=== PATIENT | male | born 1990 | race Two or more races ===

== ENCOUNTER 2020-05-05 10:22 | Emergency (ER) | payer MEDICAID ==
--- NOTE | 2020-05-05 10:56 | EDM.PDOC ---
ED HPI GENERAL MEDICAL PROBLEM - General Chief Complaint: Upper Extremity Injury/Pain Stated Complaint: BROKE HAND Time Seen by Provider: 05/05/20 10:50 Source of Information: Reports: Patient History Limitations: Reports: No Limitations - History of Present Illness INITIAL COMMENTS - FREE TEXT/NARRATIVE: 30-year-old male who reports that he punched a window at approximately midnight last night. He did break the window and has multiple small cuts to the dorsum of his right hand or there is also swelling in this area. He reports the pain as a 9/10 now and it goes up to a 10/10 when he moves it. It is a sharp pain with throbbing component. The pain does not radiate. There were no other injuries. There are no other associated signs or symptoms. There are no other modifying factors. Onset: Other (Around midnight last night) Duration: Constant Location: Reports: Upper Extremity, Right Quality: Reports: Sharp, Throbbing Severity: Severe Improves with: Reports: Immobilization, Rest Worsens with: Reports: Movement Context: Reports: Trauma (Punched a window as above.) Associated Symptoms: Reports: No Other Symptoms Treatments EXPERIMENTAL PHYSICIST: Reports: Other (see below) (Nothing.) Right Hand Pain Score (Numeric/FACES): 8 - Related Data Allergies Allergy/AdvReac Type Severity Reaction Status Date / Time No Known Allergies Allergy Verified 05/05/20 10:48 Past Medical History Neurological History: Reports: Brain Injury Psychiatric History: Reports: Anxiety, Depression - Past Surgical History HEENT Surgical History: Reports: Other (See Below) (Facial surgery status post trauma.) Social & Family History - Tobacco Use Tobacco Use Status *Q: Current Every Day Tobacco User - Alcohol Use Alcohol Use History: Yes - Living Situation & Occupation Living situation: Reports: Single Occupation: Unemployed Review of Systems - Review of Systems Review Of Systems: See Below (Last tetanus immunization was less than 5 years ago according to the patient.) Constitutional: Reports: No Symptoms Eyes: Reports: No Symptoms Ears: Reports: No Symptoms Nose: Reports: No Symptoms Mouth/Throat: Reports: No Symptoms Respiratory: Reports: No Symptoms Cardiovascular: Reports: No Symptoms GI/Abdominal: Reports: No Symptoms Genitourinary: Reports: No Symptoms Musculoskeletal: Reports: Hand Pain (Right hand pain), Other ([id number].) Skin: Reports: Wound (Multiple cuts to the dorsum of his right hand.), Other (Swelling) Neurological: Reports: No Symptoms Psychiatric: Reports: No Symptoms ED EXAM, GENERAL - Physical Exam Exam: See Below Exam Limited By: No Limitations General Appearance: Alert, WD/WN, Moderate Distress (Appears in some pain.) Eye Exam: Bilateral Eye: EOMI, Normal Inspection Ears: Normal External Exam, Hearing Grossly Normal Ear Exam: Bilateral Ear: Auricle Normal Nose: Normal Inspection, Normal Mucosa, No Blood Throat/Mouth: Normal Inspection, Normal Oropharynx, Normal Voice, No Airway Compromise Head: Atraumatic, Normocephalic Neck: Normal Inspection, Supple, Non-Tender, Full Range of Motion Respiratory/Chest: No Respiratory Distress, Lungs Clear, Normal Breath Sounds, No Accessory Muscle Use, Chest Non-Tender Cardiovascular: Normal Peripheral Pulses, Regular Rate, Rhythm, No Murmur Peripheral Pulses: 2+: Radial (L), Radial (R) GI/Abdominal: Normal Bowel Sounds, Soft, Non-Tender, No Mass Back Exam: Normal Inspection, Full Range of Motion Extremities: No Pedal Edema, Normal Capillary Refill, Limited Range of Motion (Of right hand secondary to pain. Swelling over the dorsum of his right hand at the MCP area.) Neurological: Alert, Oriented, CN II-XII Intact, Normal Cognition, No Motor/Sensory Deficits Psychiatric: Normal Affect Skin Exam: Warm, Dry, Ecchymosis, Erythema, Wound/Incision (Past of the dorsum of the right hand) ED TRAUMA EXTREMITY PROCEDURES - Splinting Right Upper Extremity Splint Site: Right hand, wrist and forearm Pre-Procedure NV Status: Normal Post-Procedure NV Status: Normal Splint Material: Fiberglass Splint Design: Volar Applied & Form Fitted By: Provider Provider Post-Splint Application NV Check: NV Status Normal, Other (No change in position. No reduction performed.) Complications: No Progress/Comments: Wounds were dressed with bacitracin and Telfa prior to applying the splint. Course - Vital Signs Last Recorded V/S: Last Vital Signs Temp 36.6 C 05/05/20 10:34 Pulse 95 05/05/20 10:34 Resp 20 05/05/20 10:34 BP 130/82 05/05/20 10:34 Pulse Ox 92 L 05/05/20 10:34 - Orders/Labs/Meds Orders: Active Orders 24 hr Category Date Time Status Hand Comp Min 3V Rt [CR] Stat Exams 05/05/20 11:02 Taken Meds: Medications Discontinued Medications Generic Name Dose Route Start Last Admin Trade Name Darrell PRN Reason Stop Dose Admin Bacitracin 1 dose 05/05/20 11:40 Bacitracin Oint 1 Gm U/D Packet TOP 05/05/20 11:41 ONETIME ONE Ibuprofen 800 mg 05/05/20 11:22 05/05/20 11:30 Ibuprofen 800 Mg Tab PO 05/05/20 11:23 800 mg ONETIME ONE Administration - Radiology Interpretation Free Text/Narrative:: X-ray of right hand shows impacted fracture with of the distal fourth metacarpal. - Re-Assessments/Exams Free Text/Narrative Re-Assessment/Exam: 05/05/20 12:00: The wounds were examined. They were superficial/subcutaneous. I did not see any definite foreign body on my external exam. The x-ray did not show any radiopaque foreign bodies. The right hand was cleaned and the wounds were cleaned by the nursing staff and the wounds were dressed with bacitracin and Telfa and then the short arm volar splint to the right upper extremity was applied by myself. The patient is to follow-up with either the [facility] or [facility] clinic in [place] or the walk-in clinic associated with [facility] by the middle of next week. Precautions and reasons for return to the emergency department were discussed with the patient while he was in the emergency department and were detailed in his discharge instructions. Departure - Departure Time of Disposition: 12:10 Disposition: Home, Self-Care 01 Condition: Good Clinical Impression: Contusion of right hand, initial encounter Hand laceration Qualifiers: Encounter type: initial encounter Foreign body presence: without foreign body Laterality: right Qualified Code(s): S61.411A - Laceration without foreign body of right hand, initial encounter Fracture, metacarpal, neck Qualifiers: Encounter type: initial encounter Metacarpal bone: fourth Fracture type: closed Fracture alignment: nondisplaced Laterality: right Qualified Code(s): S62.364A - Nondisplaced fracture of neck of fourth metacarpal bone, right hand, initial encounter for closed fracture - Discharge Information Instructions: Contusion, [id number], Metacarpal Fracture, [id number], Cast or Splint Care, Adult, [id number] Referrals: PCP,Not In Area [Primary Care Provider] - Forms: ED Department Discharge, ED Return to Work/School Form Additional Instructions: You have a fracture of the fourth knuckle bone or metacarpal. It is angulated but nondisplaced. It does not appear to be anything that would require surgery at this time. You also have some cuts on the top of your right hand. These were cleaned and dressings were applied. They and your hand will need to be rechecked by the middle of next week. You should leave the splint intact and all times. You will need to follow-up either with the [facility] or [facility] clinics in [place] or with the Walk-in Clinic here at [facility]. No use of the right hand until cleared by one of these clinics or any doctor that you follow-up with. You can take ibuprofen and Tylenol as needed for pain. Back to the emergency department for marked increase in pain, fever, spreading redness or any other concerning sign or symptom. Sepsis Event Note (ED) - Evaluation Sepsis Screening Result: No Definite Risk - Focused Exam Vital Signs: Vital Signs Temp Pulse Resp BP Pulse Ox 05/05/20 10:34 36.6 C 95 20 130/82 92 L - My Orders Last 24 Hours: My Active Orders 05/05/20 11:02 Hand Comp Min 3V Rt [CR] Stat - Assessment/Plan Last 24 Hours: My Active Orders 05/05/20 11:02 Hand Comp Min 3V Rt [CR] Stat
[2020-05-05] MEDS ORDERED: Ibuprofen 800 MG Tab PO ONE (11:22)
[2020-05-05] MEDS ORDERED: Bacitracin Oint 1 GM U/D Packet TOP ONE (11:40)
--- NOTE | 2020-05-07 12:44 | CR ---
INDICATION: Injury with swelling and pain after punching a window. RIGHT HAND: Three views of the right hand were obtained 05/05/20 and revealed a boxer's type fracture of the distal fourth metacarpal at the metaphysis with mild medial and possibly dorsal angulation at the fracture site - adequate position and alignment is suggested. No other bone or joint abnormality was identified. Soft tissue swelling is noted overlying the mid to distal metacarpals dorsally, MTDD
== END 2020-05-05 12:30 | disposition home or self-care (01) ==
LOC: FB.ED 10:22
DX: S62.364A Nondisplaced fracture of neck of fourth metacarpal bone, right hand, initial encounter for closed fracture (principal); Z72.0 Tobacco use; W26.8XXA Contact with other sharp object(s), not elsewhere classified, initial encounter
CPT/HCPCS: 29125; 73130-RT; 99282; 99283-25; A9270-GY